=== PATIENT | male | born 1960 | race Caucasian/White ===

== ENCOUNTER 2018-04-08 10:49 | Emergency (ER) | payer OTHER ==
[~2018-04-08] VITALS: Ht 185.4 cm; Wt 88.1 kg
[2018-04-08 12:38] LABS: HEMATOCRIT 49.2 % (38.0-50.0); HEMOGLOBIN 16.8 G/DL (12.5-16.6); MCH 30.1 PG (29.0-34.0); MCHC 34.1 G/DL (30.0-36.0); MCV 88.2 FL (86-99); PLATELET COUNT 183 K/uL (156-360); RBC DIS.WIDTH-CV 14.2 % (11.8-14.6); RBC DIS.WIDTH-SD 45.9 % (39-53); RED BLOOD COUNT 5.58 M/uL (4.00-5.50); WHITE BLOOD COUNT 11.2 K/uL (4.1-10.2)
[2018-04-08 13:08] LABS: ALBUMIN 4.1 G/DL (3.2-4.8); ALKALINE PHOSPHATASE 42 IU/L (3-129); ALT (GPT) 45 IU/L (3-49); AST (GOT) 131 IU/L (2-34); CHLORIDE 101 MEQ/L (99-109); CREATININE 0.9 MG/DL (0.6-1.3); GFR ESTIMATE (CALCULATED) > 59 mL/min/ (58.99-99999); GLUCOSE 103 mg/dL (70-99); POTASSIUM 4.3 MEQ/L (3.7-5.4); SODIUM 135 MEQ/L (136-147); TOTAL BILIRUBIN 0.9 MG/DL (0.0-1.0); TOTAL PROTEIN 6.9 G/DL (6.4-8.3); UREA NITROGEN (BUN) 14 mg/dL (9-23)
[2018-04-08] MEDS ORDERED: KEFLEX500 MG PO (13:43)
[2018-04-08] MEDS ORDERED: BACTRIM,SEPT1 TABLET PO (13:43)
[2018-04-08 14:06] VITALS: BP 148/79
== END 2018-04-08 14:07 | disposition home or self-care (01) ==
LOC: EME 10:49
PROVIDERS: Nurse Practitioner Family
DX: L03.114 Cellulitis of left upper limb (principal); I10 Essential (primary) hypertension; E78.5 Hyperlipidemia, unspecified
CPT/HCPCS: 73130; 80053; 83605; 85027; 87040; 99281; 99284; J1885